=== PATIENT | female | born 1985 | race Hispanic/Latino ===

== ENCOUNTER 2021-04-22 13:57 | Inpatient (IN) | payer SELFPAY ==
[2021-04-22] MEDS ORDERED: Morphine 4 MG/ML VIAL ONE ×2 (14:17→15:59)
[2021-04-22] MEDS ORDERED: Ondansetron PF 4 MG/2 ML Vial ONE ×2 (14:17→17:42)
[2021-04-22 14:21] LABS: Hemoglobin 8.7 g/dL (12.0-15.5); Mean Corpuscular Hemoglobin 19.3 pg (27.0-33.0); Mean Corpuscular Volume 66.5 fl (81.6-98.3); Platelet Count 133 10x3/uL (150-450); RBC Distribution Width 19.9 % (11.5-14.5); Red Blood Cell (RBC) Count 4.51 10x6/uL (3.90-5.03); White Blood Cell (WBC) Count 4.7 10x3/uL (3.5-10.5)
[2021-04-22 14:22] LABS: MDiff Complete? YES
[2021-04-22 14:33] LABS: ALT (SGPT) 56 U/L (8-55); AST (SGOT) 33 U/L (5-34); Alkaline Phosphatase 85 U/L (40-110); Anion Gap 11 mmol/L (10-20); BUN (Urea Nitrogen) 7 mg/dL (7.0-18.7); Bilirubin, Total 0.5 mg/dL (0.2-1.2); Calc. Creatinine Clearance 0 mL/min (70-130); Calcium 7.3 mg/dL (7.8-10.44); Carbon Dioxide 24 mmol/L (22-29); Chloride 102 mmol/L (98-107); Globulin 2.8 g/dL (2.4-3.5); Glucose 128 mg/dL (70-105); Lipase 8 U/L (8-78); Protein, Total 5.8 g/dL (6.0-8.3); Sodium 134 mmol/L (136-145)
[2021-04-22 14:35] LABS: Potassium 2.7 mmol/L (3.5-5.1)
[2021-04-22 14:55] LABS: Band 11 % (5-11); Lymphocytes 21 % (21-51); Monocytes 4 % (0-10); Neutrophil 64 % (42-75)
[2021-04-22 14:57] LABS: Anisocytosis SLIGHT = 6-15 cells (100X) (0-5/hpf); Hypochromia SLIGHT = 6-15 cells (100X) (0-5/hpf); Microcytosis SLIGHT = 6-15 cells (100X) (0-5/hpf)
[2021-04-22 14:58] LABS: Platelet Morphology Comment Appears Decreased
[2021-04-22] MEDS ORDERED: Potassium Chloride 20 MEQ TAB ONE (15:28)
[2021-04-22] MEDS ORDERED: Potassium Chloride 20 MEQ/100 ML PREMIX BAG ONE (15:28)
[2021-04-22 15:36] LABS: Bilirubin Neg (Negative); Blood, Urine 150 (Negative); Clarity Slightly Cloudy (Clear); Glucose, Urine (Dipstick) Normal (Negative); Ketone, Urine 5 mg/dL (Negative); Leukocyte 25 (Negative); Nitrite Negative (Negative); Protein, Urine (Dipstick) 100 mg/dl (Neg-Trace)
[2021-04-22 15:38] LABS: Pregnancy Test - Urine (BHCG) Negative (Negative); Pregu Control Background? CLEAR/WHITE (CLR/WHITE); Pregu Control Bar Appear? YES (CONTROL BAR)
[2021-04-22 15:52] LABS: Bacteria/HPF 2+ HPF (None Seen); Mucous/LPF 2+ LPF (<2+); RBC/HPF 0-3 HPF (0-3); WBC/HPF 0-3 HPF (0-3)
[2021-04-22] MEDS ORDERED: Piperacillin/Tazobactam 4.5 GM VIAL ONE (16:45)
[2021-04-22 17:01] LABS: INR-International Normal Ratio 1.1; Prothrombin Time 12.2 sec (9.5-12.1)
[2021-04-22 17:34] LABS: SARS-CoV-2 NAA Rapid Test Not Detected (NotDetected)
[2021-04-22] MEDS ORDERED: PROPOFOL 20 ML ONE (17:42)
[2021-04-22] MEDS ORDERED: Lidocaine 1% PF 5 ML VIAL ONE (17:42)
[2021-04-22] MEDS ORDERED: Fentanyl 100 MCG/2 ML VIAL ONE (17:42)
[2021-04-22] MEDS ORDERED: Vecuronium 10 MG VIAL ONE (17:43)
[2021-04-22] MEDS ORDERED: Dexamethasone 4 mg/ml Vial ONE (17:43)
[2021-04-22] MEDS ORDERED: Succinylcholine 200 MG/10 ml SYRINGE FS ONE (17:43)
[2021-04-22] MEDS ORDERED: Bupivacaine HCl 0.5%/Epinephrine 1:200,000/PF 30 ml Vial ONE (17:45)
[2021-04-22] MEDS ORDERED: Ketamine 50 MG/ML (10ML VIAL) ONE (18:01)
[2021-04-22] MEDS ORDERED: Ketorolac Tromethamine 30 MG/ML VIAL ONE (19:02)
[2021-04-22] MEDS ORDERED: Glycopyrrolate 0.2 MG/ML 5 ML SYRINGE ONE (19:02)
[2021-04-22] MEDS ORDERED: Dextrose 5% in Water 1,000 ML IV PRN (19:10)
[2021-04-22] MEDS ORDERED: HYDROcodone/Acetaminophen 10/325 mg Tablet PO PRN ×2 (19:10)
[2021-04-22] MEDS ORDERED: hydrALAZINE 20 MG/ML VIAL SLOW IVP PRN (19:10)
[2021-04-22] MEDS ORDERED: Dextrose 50% Abboject 50 ML SYRINGE SLOW IVP PRN (19:10)
[2021-04-22] MEDS ORDERED: Promethazine HCl 25 MG/ML VIAL IM PRN (19:10)
[2021-04-22] MEDS ORDERED: Morphine 4 MG/ML VIAL SLOW IVP PRN ×2 (19:10→21:30)
[2021-04-22] MEDS: Ketorolac Tromethamine 30 MG/ML VIAL IVP SCH (23:18)
[2021-04-22] MEDS: Piperacillin/Tazobactam 3.375 GM in Sodium Chloride 0.9% 100 ML IVPB SCH (23:19)
[2021-04-22] MEDS: Famotidine/PF 20 mg/2ml Vial SLOW IVP SCH (23:19)
[2021-04-23 00:13] VITALS: BMI 29.1
[2021-04-23] MEDS: Lactated Ringer's 1,000 ML IV SCH ×3 (01:06→16:17)
[2021-04-23] MEDS: Famotidine 20 MG TAB PO SCH ×3 (01:07→20:36)
[2021-04-23] MEDS ORDERED: FLU VACC QS2021-22(6MOS UP)/PF 60 MCG/0.5 ML SYRINGE IM ONE (01:30)
[2021-04-23 05:08] LABS: #Monocytes 1.1 10x3/uL (0.0-1.1); #Neutrophils 6.4 10x3/uL (1.5-8.4); %Basophils 0.4 % (0.0-2.0); %Lymphocytes 8.5 % (18.0-47.0); %Monocytes 13.2 % (0.0-10.0); %Neutrophils 77.1 % (40.0-75.0); Hemoglobin 9.4 g/dL (12.0-15.5); Mean Corpuscular Hemoglobin 19.7 pg (27.0-33.0); Mean Corpuscular Volume 65.5 fl (81.6-98.3); Mean Platelet Volume 9.7 fl (7.4-10.4); Platelet Count 142 10x3/uL (150-450); RBC Distribution Width 20.6 % (11.5-14.5); Red Blood Cell (RBC) Count 4.78 10x6/uL (3.90-5.03); White Blood Cell (WBC) Count 8.3 10x3/uL (3.5-10.5)
[2021-04-23] MEDS: Ketorolac Tromethamine 30 MG/ML VIAL IVP SCH ×3 (05:08→18:27)
[2021-04-23] MEDS: Piperacillin/Tazobactam 3.375 GM in Sodium Chloride 0.9% 100 ML IVPB SCH ×3 (05:09→20:39)
[2021-04-23 05:11] LABS: Anion Gap 11 mmol/L (10-20); BUN (Urea Nitrogen) 10 mg/dL (7.0-18.7); Calc. Creatinine Clearance 167 mL/min (70-130); Calcium 7.2 mg/dL (7.8-10.44); Carbon Dioxide 21 mmol/L (22-29); Chloride 106 mmol/L (98-107); Glucose 145 mg/dL (70-105); Potassium 3.4 mmol/L (3.5-5.1); Sodium 135 mmol/L (136-145)
[2021-04-23] MEDS ORDERED: Sodium Chloride 0.9% 500 ML IV SCH (08:30)
[2021-04-23] MEDS: Enoxaparin Sodium 40 MG/0.4 ML SYRINGE SC SCH (08:53)
[2021-04-23] MEDS: Famotidine/PF 20 mg/2ml Vial SLOW IVP SCH ×2 (16:16→21:12)
[2021-04-24] MEDS: Ketorolac Tromethamine 30 MG/ML VIAL IVP SCH ×4 (00:49→17:48)
[2021-04-24] MEDS: Piperacillin/Tazobactam 3.375 GM in Sodium Chloride 0.9% 100 ML IVPB SCH ×3 (04:40→21:18)
[2021-04-24] MEDS: Lactated Ringer's 1,000 ML IV SCH ×3 (06:09→23:44)
[2021-04-24 08:57] LABS: Hemoglobin 8.5 g/dL (12.0-15.5); Mean Corpuscular HGB CONC 30.6 g/dL (32.0-36.0); Mean Corpuscular Hemoglobin 19.7 pg (27.0-33.0); Mean Corpuscular Volume 64.5 fl (81.6-98.3); RBC Distribution Width 20.2 % (11.5-14.5); Red Blood Cell (RBC) Count 4.31 10x6/uL (3.90-5.03); White Blood Cell (WBC) Count 9.9 10x3/uL (3.5-10.5)
[2021-04-24 08:59] LABS: MDiff Complete? YES; Platelet Count 176 10x3/uL (150-450)
[2021-04-24 09:27] LABS: Band 10 % (5-11); Neutrophil 61 % (42-75)
[2021-04-24 09:29] LABS: Lymphocytes 19 % (21-51); Monocytes 10 % (0-10)
[2021-04-24 09:34] LABS: Microcytosis MODERATE=15-30 cells (100X) (0-5/hpf)
[2021-04-24 09:35] LABS: Ovalocytes SLIGHT = 2-5 cells (100X) (0-1/hpf)
[2021-04-24 09:36] LABS: Platelet Morphology Comment Appears Adequate
[2021-04-24] MEDS: Famotidine 20 MG TAB PO SCH ×2 (11:11→21:18)
[2021-04-24] MEDS: Enoxaparin Sodium 40 MG/0.4 ML SYRINGE SC SCH (11:15)
[2021-04-24] MEDS: Famotidine/PF 20 mg/2ml Vial SLOW IVP SCH ×2 (11:21→21:19)
[2021-04-25] MEDS: Ketorolac Tromethamine 30 MG/ML VIAL IVP SCH ×4 (01:07→19:44)
[2021-04-25 04:48] LABS: MDiff Complete? YES; Mean Corpuscular HGB CONC 30.4 g/dL (32.0-36.0); Mean Corpuscular Hemoglobin 19.7 pg (27.0-33.0); Mean Corpuscular Volume 64.6 fl (81.6-98.3); Platelet Count 241 10x3/uL (150-450); RBC Distribution Width 20.7 % (11.5-14.5); Red Blood Cell (RBC) Count 4.58 10x6/uL (3.90-5.03); White Blood Cell (WBC) Count 16.8 10x3/uL (3.5-10.5)
[2021-04-25] MEDS: Piperacillin/Tazobactam 3.375 GM in Sodium Chloride 0.9% 100 ML IVPB SCH (04:51)
[2021-04-25 04:52] LABS: Band 27 % (5-11); Eosinophils 1 % (0-10); Lymphocytes 6 % (21-51); Monocytes 10 % (0-10); Myelocyte 1 % (0-0); Neutrophil 55 % (42-75)
[2021-04-25 04:53] LABS: Dohle Bodies SLIGHT; Microcytosis MODERATE=15-30 cells (100X) (0-5/hpf); Platelet Morphology Comment Appears Adequate; Toxic Granulation SLIGHT
[2021-04-25] MEDS ORDERED: Sodium Chloride 0.9% 500 ML IV SCH ×2 (07:15→12:15)
[2021-04-25] MEDS: Sodium Chloride 0.9% 1,000 ML IV SCH ×2 (09:18→19:45)
[2021-04-25] MEDS: Famotidine/PF 20 mg/2ml Vial SLOW IVP SCH ×2 (09:19→21:48)
[2021-04-25] MEDS: Enoxaparin Sodium 40 MG/0.4 ML SYRINGE SC SCH (09:19)
[2021-04-25] MEDS: Famotidine 20 MG TAB PO SCH ×2 (09:20→21:47)
[2021-04-25] MEDS: metroNIDAZOLE 500 MG in Premix Bag 1 BAG IVPB SCH ×2 (12:09→21:06)
[2021-04-25] MEDS: Acetaminophen 325 MG TAB PO PRN (21:47)
[2021-04-26] MEDS: metroNIDAZOLE 500 MG in Premix Bag 1 BAG IVPB SCH ×4 (00:21→17:37)
[2021-04-26] MEDS: Ketorolac Tromethamine 30 MG/ML VIAL IVP SCH (00:21)
[2021-04-26] MEDS: Sodium Chloride 0.9% 1,000 ML IV SCH ×3 (00:22→13:07)
[2021-04-26] MEDS: Lactated Ringer's 1,000 ML IV SCH (00:47)
[2021-04-26 07:00] LABS: Hemoglobin 8.4 g/dL (12.0-15.5); Mean Corpuscular HGB CONC 30.9 g/dL (32.0-36.0); Mean Corpuscular Hemoglobin 19.8 pg (27.0-33.0); Mean Corpuscular Volume 64.2 fl (81.6-98.3); Mean Platelet Volume 10.6 fl (7.4-10.4); RBC Distribution Width 20.4 % (11.5-14.5); Red Blood Cell (RBC) Count 4.24 10x6/uL (3.90-5.03); White Blood Cell (WBC) Count 23.8 10x3/uL (3.5-10.5)
[2021-04-26 07:02] LABS: Platelet Count 280 10x3/uL (150-450)
[2021-04-26 07:27] LABS: MDiff Complete? YES
[2021-04-26 07:30] LABS: Band 35 % (5-11); Lymphocytes 9 % (21-51); Monocytes 8 % (0-10); Neutrophil 47 % (42-75); Reactive Lymphocytes 1 % (0-10)
[2021-04-26 07:31] LABS: Microcytosis SLIGHT = 6-15 cells (100X) (0-5/hpf); Platelet Morphology Comment Appears Adequate; Polychromasia SLIGHT = 2-3 cells (100X) (0-2/hpf)
[2021-04-26] MEDS: Enoxaparin Sodium 40 MG/0.4 ML SYRINGE SC SCH (11:44)
[2021-04-26] MEDS: Famotidine 20 MG TAB PO SCH ×2 (11:44→22:08)
[2021-04-26] MEDS: Famotidine/PF 20 mg/2ml Vial SLOW IVP SCH ×2 (11:50→22:57)
[2021-04-26] MEDS: Acetaminophen 325 MG TAB PO PRN ×2 (13:07→22:08)
[2021-04-26] MEDS: Ondansetron PF 4 MG/2 ML Vial IVP PRN (17:52)
[2021-04-27] MEDS: metroNIDAZOLE 500 MG in Premix Bag 1 BAG IVPB SCH ×4 (00:22→18:30)
[2021-04-27] MEDS: Sodium Chloride 0.9% 1,000 ML IV SCH ×2 (00:22→10:47)
[2021-04-27 05:04] LABS: Mean Corpuscular HGB CONC 31.6 g/dL (32.0-36.0); Mean Corpuscular Volume 63.1 fl (81.6-98.3); Mean Platelet Volume 10.6 fl (7.4-10.4); Platelet Count 349 10x3/uL (150-450); Red Blood Cell (RBC) Count 4.01 10x6/uL (3.90-5.03); White Blood Cell (WBC) Count 29.3 10x3/uL (3.5-10.5)
[2021-04-27 05:42] LABS: Band 18 % (5-11); Eosinophils 1 % (0-10); Lymphocytes 8 % (21-51); Monocytes 9 % (0-10); Myelocyte 2 % (0-0); Nucleated RBC 2 % (0); Reactive Lymphocytes 2 % (0-10)
[2021-04-27 05:43] LABS: Neutrophil 60 % (42-75)
[2021-04-27 05:44] LABS: Anisocytosis SLIGHT = 6-15 cells (100X) (0-5/hpf); Hypochromia MODERATE=16-30 cells (100X) (0-5/hpf); Microcytosis MODERATE=15-30 cells (100X) (0-5/hpf); Ovalocytes SLIGHT = 2-5 cells (100X) (0-1/hpf)
[2021-04-27 05:45] LABS: Large Platelets SLIGHT; Platelet Morphology Comment Appears Adequate; Toxic Granulation SLIGHT
[2021-04-27 05:46] LABS: Dohle Bodies SLIGHT; MDiff Complete? YES
[2021-04-27] MEDS: Enoxaparin Sodium 40 MG/0.4 ML SYRINGE SC SCH (10:29)
[2021-04-27] MEDS: Famotidine 20 MG TAB PO SCH ×2 (10:29→21:16)
[2021-04-27] MEDS: Famotidine/PF 20 mg/2ml Vial SLOW IVP SCH (11:45)
[2021-04-27] MEDS: Ondansetron PF 4 MG/2 ML Vial IVP PRN (21:21)
[2021-04-28] MEDS: Famotidine/PF 20 mg/2ml Vial SLOW IVP SCH ×2 (00:17→09:04)
[2021-04-28] MEDS: metroNIDAZOLE 500 MG in Premix Bag 1 BAG IVPB SCH ×4 (00:24→17:55)
[2021-04-28 03:54] LABS: Hemoglobin 7.2 g/dL (12.0-15.5); Mean Corpuscular Hemoglobin 19.8 pg (27.0-33.0); Mean Corpuscular Volume 63.7 fl (81.6-98.3); Mean Platelet Volume 10.3 fl (7.4-10.4); Platelet Count 377 10x3/uL (150-450); RBC Distribution Width 19.9 % (11.5-14.5); Red Blood Cell (RBC) Count 3.64 10x6/uL (3.90-5.03); White Blood Cell (WBC) Count 20.8 10x3/uL (3.5-10.5)
[2021-04-28 06:14] LABS: Lymphocytes 7 % (21-51); Nucleated RBC 1 % (0); Reactive Lymphocytes 1 % (0-10)
[2021-04-28 06:17] LABS: Band 21 % (5-11); Monocytes 5 % (0-10); Neutrophil 65 % (42-75)
[2021-04-28 06:19] LABS: Anisocytosis SLIGHT = 6-15 cells (100X) (0-5/hpf); Microcytosis MODERATE=15-30 cells (100X) (0-5/hpf)
[2021-04-28 06:20] LABS: Hypochromia MODERATE=16-30 cells (100X) (0-5/hpf); Large Platelets SLIGHT; Ovalocytes SLIGHT = 2-5 cells (100X) (0-1/hpf); Platelet Morphology Comment Appears Adequate; Polychromasia SLIGHT = 2-3 cells (100X) (0-2/hpf)
[2021-04-28 06:21] LABS: Toxic Granulation SLIGHT
[2021-04-28 06:22] LABS: MDiff Complete? YES
[2021-04-28] MEDS: Enoxaparin Sodium 40 MG/0.4 ML SYRINGE SC SCH (08:59)
[2021-04-28] MEDS: Famotidine 20 MG TAB PO SCH ×2 (09:07→21:05)
[2021-04-28] MEDS: Sodium Chloride 0.9% 1,000 ML IV SCH ×2 (09:23→17:56)
[2021-04-28] MEDS: Acetaminophen 325 MG TAB PO PRN (12:38)
[2021-04-29] MEDS: metroNIDAZOLE 500 MG in Premix Bag 1 BAG IVPB SCH ×4 (00:12→18:19)
[2021-04-29] MEDS: Sodium Chloride 0.9% 1,000 ML IV SCH ×2 (00:18→09:52)
[2021-04-29] MEDS: Famotidine/PF 20 mg/2ml Vial SLOW IVP SCH ×2 (00:18→09:52)
[2021-04-29 08:44] LABS: Hemoglobin 7.7 g/dL (12.0-15.5); Mean Corpuscular HGB CONC 30.6 g/dL (32.0-36.0); Mean Corpuscular Hemoglobin 19.9 pg (27.0-33.0); Mean Corpuscular Volume 65.3 fl (81.6-98.3); Mean Platelet Volume 10.1 fl (7.4-10.4); Platelet Count 487 10x3/uL (150-450); RBC Distribution Width 20.4 % (11.5-14.5); Red Blood Cell (RBC) Count 3.86 10x6/uL (3.90-5.03); White Blood Cell (WBC) Count 23.5 10x3/uL (3.5-10.5)
[2021-04-29 09:26] LABS: Lymphocytes 7 % (21-51); MDiff Complete? YES; Monocytes 2 % (0-10); Neutrophil 91 % (42-75); Nucleated RBC 1 % (0)
[2021-04-29 09:27] LABS: Anisocytosis MODERATE=16-30 cells (100X) (0-5/hpf); Hypochromia SLIGHT = 6-15 cells (100X) (0-5/hpf); Microcytosis MODERATE=15-30 cells (100X) (0-5/hpf); Target Cells SLIGHT = 2-5 cells (100X) (0-1/hpf)
[2021-04-29 09:28] LABS: Elliptocytes SLIGHT = 2-5 cells (100X) (0-1/hpf); Polychromasia SLIGHT = 2-3 cells (100X) (0-2/hpf); Stomatocytes SLIGHT = 2-5 cells (100X) (0-1/hpf)
[2021-04-29 09:30] LABS: Large Platelets SLIGHT; Platelet Morphology Comment Appears Adequate
[2021-04-29 09:32] LABS: Reflex for Review?? YES
[2021-04-29] MEDS: Famotidine 20 MG TAB PO SCH ×2 (09:49→21:42)
[2021-04-29] MEDS: Enoxaparin Sodium 40 MG/0.4 ML SYRINGE SC SCH (11:05)
[2021-04-30] MEDS: metroNIDAZOLE 500 MG in Premix Bag 1 BAG IVPB SCH ×5 (00:21→23:40)
[2021-04-30 05:49] LABS: #Monocytes 1.4 10x3/uL (0.0-1.1); #Neutrophils 12.2 10x3/uL (1.5-8.4); %Basophils 0.2 % (0.0-2.0); %Eosinophils 0.2 % (0.0-6.0); %Lymphocytes 14.5 % (18.0-47.0); %Monocytes 8.2 % (0.0-10.0); %Neutrophils 72.5 % (40.0-75.0); Hemoglobin 7.8 g/dL (12.0-15.5); Mean Corpuscular HGB CONC 30.6 g/dL (32.0-36.0); Mean Corpuscular Hemoglobin 20.1 pg (27.0-33.0); Mean Corpuscular Volume 65.6 fl (81.6-98.3); Mean Platelet Volume 9.8 fl (7.4-10.4); Platelet Count 528 10x3/uL (150-450); Red Blood Cell (RBC) Count 3.89 10x6/uL (3.90-5.03); White Blood Cell (WBC) Count 16.8 10x3/uL (3.5-10.5)
[2021-04-30] MEDS: Famotidine 20 MG TAB PO SCH ×2 (09:22→21:35)
[2021-04-30] MEDS: Enoxaparin Sodium 40 MG/0.4 ML SYRINGE SC SCH (09:22)
[2021-05-01 04:40] LABS: Hemoglobin 7.7 g/dL (12.0-15.5); Mean Corpuscular HGB CONC 30.3 g/dL (32.0-36.0); Mean Corpuscular Hemoglobin 19.8 pg (27.0-33.0); Mean Corpuscular Volume 65.5 fl (81.6-98.3); Mean Platelet Volume 9.9 fl (7.4-10.4); Platelet Count 575 10x3/uL (150-450); RBC Distribution Width 21.9 % (11.5-14.5); Red Blood Cell (RBC) Count 3.88 10x6/uL (3.90-5.03); White Blood Cell (WBC) Count 13.9 10x3/uL (3.5-10.5)
[2021-05-01 05:06] LABS: MDiff Complete? YES
[2021-05-01 05:17] LABS: Band 3 % (5-11); Lymphocytes 20 % (21-51); Monocytes 7 % (0-10); Neutrophil 70 % (42-75); Nucleated RBC 2 % (0)
[2021-05-01 05:18] LABS: Platelet Morphology Comment Appears Increased
[2021-05-01 05:19] LABS: Hypochromia MODERATE=16-30 cells (100X) (0-5/hpf); Microcytosis MARKED = >30 cells (100X) (0-5/hpf); Polychromasia SLIGHT = 2-3 cells (100X) (0-2/hpf)
[2021-05-01] MEDS: metroNIDAZOLE 500 MG in Premix Bag 1 BAG IVPB SCH ×3 (05:24→17:53)
[2021-05-01] MEDS: Famotidine 20 MG TAB PO SCH ×2 (09:11→22:16)
[2021-05-01] MEDS: Enoxaparin Sodium 40 MG/0.4 ML SYRINGE SC SCH (09:12)
[2021-05-02] MEDS: metroNIDAZOLE 500 MG in Premix Bag 1 BAG IVPB SCH ×3 (00:56→14:32)
[2021-05-02 05:17] LABS: #Basophils 0.1 10x3/uL (0.0-0.2); #Eosinphils 0.1 10x3/uL (0.0-0.5); #Monocytes 0.9 10x3/uL (0.0-1.1); #Neutrophils 6.9 10x3/uL (1.5-8.4); %Basophils 0.5 % (0.0-2.0); %Lymphocytes 21.6 % (18.0-47.0); %Monocytes 8.8 % (0.0-10.0); %Neutrophils 65.2 % (40.0-75.0); Hemoglobin 7.6 g/dL (12.0-15.5); Mean Corpuscular HGB CONC 29.6 g/dL (32.0-36.0); Mean Corpuscular Hemoglobin 19.9 pg (27.0-33.0); Mean Corpuscular Volume 67.3 fl (81.6-98.3); Mean Platelet Volume 9.8 fl (7.4-10.4); Platelet Count 629 10x3/uL (150-450); RBC Distribution Width 22.4 % (11.5-14.5); Red Blood Cell (RBC) Count 3.82 10x6/uL (3.90-5.03); White Blood Cell (WBC) Count 10.5 10x3/uL (3.5-10.5)
[2021-05-02] MEDS: Enoxaparin Sodium 40 MG/0.4 ML SYRINGE SC SCH (08:15)
[2021-05-02] MEDS: Famotidine 20 MG TAB PO SCH (08:16)
[2021-05-02 12:30] VITALS: BP 119/67; TEMP 97.6
[2021-05-02 15:23] LABS: SARS-CoV-2 PCR by NAA Not Detected (NotDetected)
== END 2021-05-02 13:30 | disposition home or self-care (01) | DRG 340 ==
LOC: CSHERS 13:57 → CSHSDC/OP 18:33 → CSHTELE 20:50 → OBSVTOIN 20:51
PROVIDERS: ADMIT Surgery; ATTEND Surgery
PROC: 0DTJ4ZZ Resection of Appendix, Percutaneous Endoscopic Approach (ICD-10-PCS; principal; 2021-04-22)
PROC: 0D9J40Z Drainage of Appendix with Drainage Device, Percutaneous Endoscopic Approach (ICD-10-PCS; 2021-04-22)
DX: K35.33 Acute appendicitis with perforation, localized peritonitis, and gangrene, with abscess (principal); E87.6 Hypokalemia; Z20.822 Contact with and (suspected) exposure to COVID-19
CPT/HCPCS: 36415; 36416; 74177; 80048; 80053; 81003; 81015; 81025; 83690; 85025; 85060; 85610; 85730; 87040; 87070; 87077; 87186; 87205; 88304; 93005; 94760; 96365; 96366; 96368; 96375; 96376; J1100; J1650; J1885; J1956; J2270; J2405; J2543; J2704; J3010; J3480; J3490; J7030; J7050; S0028; U0002; U0003; U0005